=== PATIENT | female | born 1955 | race Caucasian/White ===

== ENCOUNTER 2017-01-19 21:27 | Inpatient (IN) | payer OTHER ==
[~2017-01-19] VITALS: Ht 172.7 cm; Wt 214.2 kg
--- NOTE | ~2017-01-19 | CO ---
ADMIT: 01/19/2017 RM/LOC: 431 [facility] MR#: [id number] [address] [address] MARCELLUS PATE [address] [place] [address] Consultation SEX: F AGE: 61 : 1955 Corrected: 01/22/20172106 aj DATE OF CONSULTATION: 01/22/2017 ATTENDING PHYSICIAN: Isela Sommers CONSULTING PHYSICIAN: Jordan Valenzuela MD ADDENDUM: Marcellus was seen in consultation tonight for hemodialysis catheter insertion. For details of the consult, please see Vidal Hines's full dictated note. I have reviewed that, seen the patient independently, examined her, reviewed her studies and laboratory values. I have discussed in detail with her tunneled hemodialysis catheter insertion. She understands the risks associated with that and does agree to proceed. I am in agreement with Vidal Hines's entire documentation. Jordan Valenzuela MD/ danae JOB #: [id number] CC: Isela Sommers, Attending Physician Chandu Mustafa, Family Physician Corrected: 01/22/20172106 aj
--- NOTE | ~2017-01-19 | WND ---
ADMIT: 01/19/2017 RM/LOC: 431 [facility] MR#: [id number] 2620 [facility] [address] [place] [phone] MARCELLUS PATE [address] [place] [address] Wound Care Clinic SEX: F AGE: 61 : 1955 DATE OF VISIT: 01/24/2017 TIME IN: 0900 hours. TIME OUT: 0930 hours. REASON FOR VISIT: Evaluation and treatment of right flank and hip rash as well as Unna's boot application to left lower extremity. This is request for wound care from Dr. Sommers. HISTORY OF PRESENT ILLNESS: This is a 61-year-old female, who presented to the emergency room at [facility] on 01/19/2017. She had been referred over by SHIV Whipple, from [place] for sepsis, moderately severe, associated with chronic left leg venous stasis ulcer and a new erysipelas of the buttocks and flakes. She had developed fever and chills on January 16 with increasing anorexia but no vomiting or diarrhea. Moderate nausea, no cough, but increasing shortness of breath. She was sent to [facility] for further evaluation and care. Since presenting to [facility], it was noted that her creatinine was rising and she was diagnosed with an acute kidney injury. She actually had a temporary dialysis port placed in her right internal jugular vein yesterday by Dr. Valenzuela. However, at this point in time, she does not need dialysis since her creatinine is lowering. Dr. Tong from Infectious Disease is following her for her erysipelas. She also developed another rash that occurred on her arms and legs and was seen by Dr. 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 Dr. Valenzuela did a biopsy of this rash yesterday also. The patient was seen by [facility] on January 27, at which time, an Unna's wrap was applied to the venous stasis ulcer on her left lower extremity. To her right hip and flank area, bullae were deflated and Xeroform was applied with ABD's or checks for absorption of the fluids. The patient reports she has no current pain. PAST MEDICAL HISTORY: Morbid obesity. Hypertension. History of gastric bypass 10 years ago. Hypothyroidism. Obstructive sleep apnea. Depression. Hyperlipidemia. Cholecystectomy. ALLERGIES: No known medication allergies. CURRENT MEDICATIONS: Per the MAR. Please see the MAR for further details. 1. Lexapro. 2. Synthroid. 3. Lovenox, currently on hold. 4. Cubicin. 5. Zosyn. PRN medications: 1. Colace. 2. Hydrocodone/acetaminophen. ADMIT: 01/19/2017 RM/LOC: 431 [facility] MR#: [id number] [address] [address] MARCELLUS PATE [address] [place] [address] Wound Care Clinic SEX: F AGE: 61 : 1955 3. Maalox. 4. Tylenol. 5. Tylenol suppository. 6. Nitrostat. 7. Normal saline. SOCIAL HISTORY: She is . She resides in [place], [place]. 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 She has a master's degree. Never smoked. She has once a month an alcoholic beverage. FAMILY HISTORY: Significant for lung cancer and heart disease in her father. REVIEW OF SYSTEMS: She is examined in her hospital room where she is awake, alert, and oriented x3. She denies any current fever or chills. No nausea or vomiting. Her appetite is returning, and she is eating breakfast without difficulty. She denies any current shortness of breath. No cough, cold, congestion, or chest pain. She has no abdominal discomfort. She has absolutely no pain in the rashes, either body wide nor the one on her right flank and hip area. She also states that she does have some tenderness to the ulceration on the left posterior calf when it is touched. PHYSICAL EXAMINATION: VITAL SIGNS: Temperature 95.4, pulse 72, respirations 20, blood pressure 100/44, O2 sats on room air is 97%. She has multiple non-blanchable erythematous plaques scattered body wide. They tend to coalesce. There are violaceous macules coalescing into the patches. On her right hip and flank area is fading erythema that has bullae. Some have been previously displayed and one is tense with serous drainage. There is copious amount of serous drainage from this right hip and flank area. To the left lower extremity, foot circumference is 26 cm, ankle is 33 cm, and calf 20 cm, malleolus is 48 cm. Posterior tibialis is 1+. Dorsalis pedis is 1+. On the posterior calf, there is an area that measures 12.5 x 8 cm that has seven scattered ulcerations noted. The largest measures 5.5 x 1.5 with a depth of 0.2 cm. It has a red moist wound base to all the seven ulcerations. A scant amount of serous drainage noted. Firm edema noted on the left lower extremity. Posterior tibialis and dorsalis pedis is 1+. ASSESSMENT: 1. Fading erysipelas on right hip and flank area. 2. Leukocytoclastic vasculitis. 3. Venous stasis ulceration to left posterior calf complicated by venous insufficiency. TREATMENT PLAN: The previous Unna's wrap was removed from the left lower extremity. The leg was washed well with warm soapy water, rinsed, and patted dry. After this, Unna-Flex was applied from toes to popliteal crease, covered with Coban from the toes to popliteal crease. She is to continue with leg elevations and ankle pump exercises. Orders were written to decrease the Unna ADMIT: 01/19/2017 RM/LOC: 431 [facility] MR#: [id number] [address] [place] [phone] MARCELLUS PATE [address] [place] [address] Wound Care Clinic SEX: F AGE: 61 : 1955 boot changes to twice weekly. Requested them on Tuesdays and Fridays. Also, requested a followup appointment on Tuesdays and Fridays in the [facility] as an outpatient after discharge from the hospital. To the right hip and flank area, the dressings had been recently changed. In observing under the dressing noted a tense bullae that was deflated. There was some loose epithelium noted on previously deflated bullae and this was trimmed with sterile scissors. Xeroform was replaced as well as ABD's to absorb the serous drainage. Orders were written and No Sting Barrier spray can be used to periwound area to protect the skin from the serous drainage. This was left in the room for use. Otherwise, we will continue with previously ordered dressing changes as needed for drainage. At this time, she is having no discomfort or any drainage from her vasculitis. So, we will leave these lesions open to air. Thank you for this referral and Wound will follow as an outpatient upon discharge. Dominique Kumar APRN/ danae JOB #: [id number] CC: Isela Sommers, Attending Physician Chandu Mustafa, Family Physician
--- NOTE | 2017-01-20 04:42 | ER ---
ADMIT: 01/19/2017 RM/LOC: 419 [facility] MR#: [id number] 2620 [facility] [address] [place] [phone] TALIB PATEGY [place] [address] [place] [address] Emergency Room Report SEX: F AGE: 61 : 1955 DATE: 01/19/2017 CHIEF COMPLAINT: Sepsis. HISTORY OF PRESENT ILLNESS: The patient is a 61-year-old female, referred by Pavan Cruz for sepsis, moderately severe, associated with chronic left leg venous stasis and new erysipelas of buttocks and flanks. The patient states she developed fevers, chills, on the way home from work, increasing anorexia without vomiting or diarrhea. Moderate nausea. No cough, but increasing shortness of breath. Denies any diarrhea or urinary symptoms, was evaluated at [facility], found to have lactic acidosis 2.3, elevated D-dimer. White count and CRP all consistent with erysipelas, treated with Zosyn and referred for sepsis management and central line placement. The patient arrived feeling much better, no longer tachycardic or febrile. PAST MEDICAL HISTORY: ILLNESSES: Hypertension, hypothyroidism, depression, hyperlipidemia, obstructive sleep apnea, CPAP, morbid obesity. OPERATIONS: Nunu-en-Y at [facility] in the remote past without complications, cholecystectomy, T and A in the remote past. ALLERGIES: NONE. MEDICATIONS: Please see nurse's MAR. SOCIAL HISTORY: . 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 Nonsmoker, nondrinker, no illicit drugs. FAMILY HISTORY: Negative per chart review. REVIEW OF SYSTEMS: A 12-point review of systems negative for all other systems, illnesses, or operations except as outlined above. PHYSICAL EXAMINATION: VITAL SIGNS: Temp 98.3, pulse 96, respirations 24, BP 130/55, SaO2 of 95% on room air. GENERAL: Toxic appearing without jaundice or icterus. HEENT: Normocephalic. No evidence of epistaxis, rhinorrhea, or otorrhea. NECK: Supple without lymphadenopathy or thyromegaly. CHEST: Clear. Breath sounds equal, diminished without rales, rhonchi, or wheeze. HEART: Regular rate and rhythm without murmur, gallop, 2 to 3+ pedal ankle edema, unchanged from baseline according to patient. ABDOMEN: Morbidly obese. Well-healed incisions. No evidence of mass or megaly. BACK: Bilateral flank, buttock erysipelas without weeping lesions, minimally tender to palpation. PERINEUM: No evidence of perirectal, vaginal extension of rash. EXTREMITIES: Venous stasis, dermatitis, and draining wound of left lower leg, chronic. Negative Homans sign. ADMIT: 01/19/2017 RM/LOC: 419 [facility] MR#: [id number] [address] [address] MARCELLUS PATE [address] [place] [address] Emergency Room Report SEX: F AGE: 61 : 1955 MEDICAL DECISION MAKING: The patient was treated prior to arrival with Zosyn, Lovenox 30 mg/kg, concern for PE because of elevated D-dimer; however, in light of sepsis, this is most likely the cause of the elevated D-dimer. Since she does have acute renal failure, likely needs V/Q scan. Since she is hemodynamically stable, that can be done in the morning. WBC 17.2, hemoglobin 10.0, platelet 147, potassium 3.6, creatinine 2.1, INR 1.09. CK 34, MB less than 0.5, troponin less than 0.015. BNP 1654, CRP 27. ABGs on 2 L; pH 7.48, pCO2 of 27.4, PO2 of 97. Left subclavian triple lumen without difficulty. Chest x-ray post procedure shows line in place. No evidence of pneumonia. Mild cardiomegaly without failure. Urine from [place] consistent with UTI, pending here. The patient was covered with vancomycin 25 mg/kg. Discussed case with Dr. Sommers, who agreed and gave orders to nursing staff. Due to the patient's presentation, findings, and intervention, 30 minutes of critical care is warranted. PROCEDURE: Left central line triple-lumen aseptic technique without difficulty. Patient tolerated procedure well. DIAGNOSES: 1. Morbid obesity. 2. Moderate sepsis syndrome. 3. Acute renal failure. 4. Erysipelas of buttocks and flanks associated with chronic venous stasis disease, left lower leg. 5. Hypertension. 6. Hyperlipidemia. RECOMMENDATION: Admit inpatient PCU for Dr. Sommers. ADMISSION/DISCHARGE CONDITION: Stable. Patient is a full code. Chaz Tamez MD/ manfredl JOB #: [id number] CC: Isela Sommers MD, Attending Physician Chandu Mustafa MD, Family Physician MD Isela Duke MD Roger D Wells, PA-C
--- NOTE | 2017-01-23 10:32 | CO ---
ADMIT: 01/19/2017 RM/LOC: 431 [facility] MR#: [id number] 2620 [facility] [address] [place] [phone] PATEMARCELLUS [address] [place] [address] Consultation SEX: F AGE: 61 : 1955 DATE OF CONSULTATION: 01/20/2017 ATTENDING PHYSICIAN: Isela Sommers CONSULTING PHYSICIAN: Rebecca Monson MD REASON FOR CONSULTATION: Acute kidney injury. HISTORY OF PRESENT ILLNESS: The patient is a pleasant 61-year-old female, who is transferred here from [facility]. She presented there with a chief complaint of fevers, chills, and rigors. She has a history of chronic lower extremity edema along with left foot ulcer for which she was being followed up by Dr. Maier previously. She began to have her rash on her buttocks and sought evaluation in the ER at [facility]. She was found to be in renal failure with a creatinine of 2.1 along with an elevated D-dimer and lactic acidosis. She was tachycardic and because of the concern for sepsis, she was transferred here for further management. In speaking with the patient, she has been taking about five tablets of Aleve on a daily basis. She also has been on renin-angiotensin blockade for her hypertension. She denies any urinary complaints. Breathing is fair. She has obstructive sleep apnea for which she is on CPAP. Appetite has been fair. Denies any cardiac, respiratory, or abdominal complaints. REVIEW OF SYSTEMS: A complete review of system is negative in detail except as mentioned in history of present illness above. PAST MEDICAL HISTORY: 1. Hypertension. 2. Morbid obesity. 3. Bypass surgery Nunu-en-Y several years ago. 4. Hypothyroidism. 5. Obstructive sleep apnea, on CPAP. 6. Depression. 7. Hyperlipidemia. ALLERGIES: NO KNOWN DRUG ALLERGIES. MEDICATIONS: Reviewed in the chart. SOCIAL HISTORY: She is . 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 Lifelong nonsmoker. No alcohol or recreational drug use. She has one daughter and two grand kids. FAMILY HISTORY: No family history of chronic kidney disease or renal replacement therapy. PHYSICAL EXAMINATION: VITAL SIGNS: Temperature 95.3 Fahrenheit, pulse 88, blood pressure 112/60, saturating 97% on room air. ADMIT: 01/19/2017 RM/LOC: 431 [facility] MR#: [id number] 2620 [facility] [address] [place] [phone] MARCELLUS PATE [address] [place] [address] Consultation SEX: F AGE: 61 : 1955 GENERAL: She is comfortable in her recliner. HEENT: Head is nontraumatic and normocephalic. Pale conjunctivae. Dry mucosa. NECK: Supple without any JVD. CHEST: Clear to auscultation. CVS: Regular rhythm. S1 and S2. No rubs, murmurs, or gallops. ABDOMEN: Soft, obese. EXTREMITIES: 1+ bilateral lower extremity edema. NEUROLOGIC: Alert, awake, and oriented x3. She is able to move her extremities. LABORATORY DATA: Reviewed. BMP with sodium 138; potassium 3.6; CO2 of 23; creatinine 2.3, up from 2.1 yesterday; calcium 7.6. Hemoglobin 9.4. Urinalysis with 1+ protein, 2+ blood, and trace leukocyte esterase. She did have squamous epithelial cells in her urine. ASSESSMENT AND PLAN: Acute kidney injury-her baseline serum creatinine was 1.2 last summer. Her acute kidney injury is likely secondary to acute tubular necrosis, septic/nephrotoxic. I will stop her NSAIDs, renin-angiotensin blockade as well as antihypertensive. I agree with IV fluid resuscitation. We will need to be careful with the antibiotic dosing especially if her creatinine continues to rise. Her antibiotics vancomycin and Zosyn are being dosed by Pharmacy. I will monitor her kidney function and electrolytes from here on. Thank you for this consultation. Please do not hesitate to contact with any questions. Rebecca Monson MD/ danae JOB #: [id number] CC: Isela Sommers, Attending Physician Chandu Mustafa, Family Physician
--- NOTE | 2017-01-27 07:23 | OR ---
ADMIT: 01/19/2017 RM/LOC: 431 [facility] MR#: [id number] [address] [place] [phone] PATE, MARCELLUS L [address] [place] [address] Operative/Delivery Room Report SEX: F AGE: 61 : 1955 SURGERY DATE: 01/23/2017 SURGEON: Jordan Valenzuela MD PREOPERATIVE DIAGNOSES: 1. Acute renal failure. 2. Rash of the right lower extremity. POSTOPERATIVE DIAGNOSES: 1. Acute renal failure. 2. Rash of the right lower extremity. PROCEDURES: 1. 4 mm punch biopsy of the right lower extremity x2. 2. Right internal jugular vein tunneled hemodialysis catheter insertion under ultrasound and fluoroscopic guidance. ANESTHESIA: General. ESTIMATED BLOOD LOSS: 10 mL. DESCRIPTION OF PROCEDURE: The patient was taken to the operating room and placed supine on the operating room table. General anesthesia was established. The right lower extremity and the rash area was prepped and draped in the standard surgical fashion. Local anesthetic was used to anesthetize the skin at the area of rash. Two separate 4 mm punch biopsies were taken for sampling of this area. A dressing was placed. Next, the right neck and chest were prepped and draped in the standard surgical fashion. Local anesthetic was used to anesthetize the skin and subcutaneous tissue of the area. The right internal jugular vein was identified with ultrasound, cannulated under ultrasound guidance with a large gauge needle. A guidewire ADMIT: 01/19/2017 RM/LOC: 431 [facility] MR#: [id number] [address] [place] [phone] PATE, MARCELLUS L [address] [place] [address] Operative/Delivery Room Report SEX: F AGE: 61 : 1955 was advanced under fluoroscopic visualization of the right atrium. The dual lumen catheter was tunneled from a separate stab incision in the subcutaneous space inferior to the right clavicle to the needle insertion site with its subcutaneous cuff in appropriate position. The sequential dilators and final sheath were advanced under fluoroscopic visualization over the guidewire. The dilator and sheath were withdrawn. The catheter was deployed via the sheath and the sheath was removed. The catheter was in good position with the tip at the right atrium and no kink. The ports were both accessed and aspirated easily and flushed with heparinized saline. The catheter was secured to the skin with 3-0 nylon suture. Dressings were placed. Sponge, needle, and instrument counts were correct at the end of the case. The patient tolerated the procedure well and transferred to the recovery area in stable condition. Jordan Valenzuela MD/ danae JOB #: [id number] CC: Isela Sommers, Attending Physician Chandu Mustafa, Family Physician
--- NOTE | 2017-01-27 07:23 | CO ---
ADMIT: 01/19/2017 RM/LOC: 431 [facility] MR#: [id number] 2620 [facility] [address] [place] [phone] MARCELLUS PATE [address] [place] [address] Consultation SEX: F AGE: 61 : 1955 Corrected: 01/22/2017 2110 ajf DATE OF CONSULTATION: 01/22/2017 ATTENDING PHYSICIAN: Isela Sommers CONSULTING PHYSICIAN: Jordan Valenzuela MD REASON FOR CONSULTATION: Placement of temporary dialysis catheter. HISTORY OF PRESENT ILLNESS: Marcellus is a very pleasant, 61-year-old female, who reports a 5-day history of chills, fevers, and rash. She just has not been feeling well and thought it was flu like symptoms initially, but then she started to develop a rash that started on her left hip and has now spread to her back, buttocks bilaterally and the posterior and anterior aspects of her lower extremities. Because of her symptoms, she was seen in our emergency room and was noted to have an elevated creatinine, white count, and lactic acid, so the patient was admitted to the hospital. Since admission, Nephrology has been consulted. Her creatinine continued to rise and in fact it is 5.1 today and so we were consulted for placement of temporary hemodialysis catheter. She denies any pain. She is currently on IV antibiotics. PAST MEDICAL HISTORY: Significant for morbid obesity, hypertension, hypothyroidism, obstructive sleep apnea, depression, and hyperlipidemia. PAST SURGICAL HISTORY: 1. Nunu-en-Y gastric bypass. 2. Cholecystectomy. ALLERGIES: NO KNOWN DRUG ALLERGIES. MEDICATIONS: Well documented in chart. FAMILY HISTORY: Noncontributory. SOCIAL HISTORY: The patient denies any tobacco, alcohol, or illicit drug use. REVIEW OF SYSTEMS: CONSTITUTIONAL: The patient denies current fever, chills, or night sweats. The rest of a comprehensive 10-point review of systems was performed and all other systems are negative. PHYSICAL EXAMINATION: GENERAL: The patient is in no acute distress. She is alert and oriented. HEENT: Head is normocephalic and atraumatic. EOMS are intact. Conjunctivae free of icterus, erythema, or pallor. Pinnae free of deformities. Nose, midline. No tracheal deviation. NECK: Supple. SKIN: Negative for jaundice, clubbing, edema, pallor, or cyanosis. Non blanching erythematous rash noted on the anterior and posterior aspect of her ADMIT: 01/19/2017 RM/LOC: 431 [facility] MR#: [id number] [address] [address] MARCELLUS PATE [address] [place] [address] Consultation SEX: F AGE: 61 : 1955 lower extremities, back and buttocks. LUNGS: Normal respiratory effort. HEART: Pulses intact. Regular rate and rhythm. ABDOMEN: Morbid obesity noted. Soft. NEURO: Grossly intact. LABORATORY DATA: Creatinine 5.1. ASSESSMENT: 1. Acute kidney injury. 2. 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 PLAN: Plan is to go ahead and proceed with placement of hemodialysis catheter in the OR tomorrow. This will be performed by Dr. Valenzuela. During my assessment, Dr. Kramer was present and she was hoping to get a punch biopsy performed and so we will plan to do this while the patient was sedated in the OR. I discussed the risks, alternatives, benefits, and complications of punch biopsy and hemodialysis catheter placement with the patient to which she is in agreement of this plan, had all her questions answered and would like to proceed. Today I will give her clears, but she needs to be n.p.o. at midnight, and we will see her tomorrow in the OR. Thanks for the consultation. SHIV Flor / Jordan Valenzuela MD / danae JOB #: [id number] CC: Isela Sommers, Attending Physician Chandu Mustafa, Family Physician Corrected: 01/22/20172109 ya
[2017-01-28] MEDS ORDERED: LEXAPRO DPS20 MG PO (13:55)
[2017-01-28] MEDS ORDERED: SYNTHROID DPS0.15 MG PO (13:56)
[2017-01-28] MEDS ORDERED: COLACE-DPS100 MG PO (13:57)
[2017-01-28] MEDS ORDERED: NORMAL SALINE FL5 ML IV (13:57)
[2017-01-28] MEDS ORDERED: CUBICIN500 MG IV (13:57)
[2017-01-28] MEDS ORDERED: TYLENOL DPS325 MG PO (13:58)
--- NOTE | 2017-01-29 11:11 | CO ---
ADMIT: 01/19/2017 RM/LOC: [facility] MR#: [id number] [address] [facility] [address] [place] [phone] MARCELLUS GOMEZ [address] [place] [address] Consultation SEX: F AGE: 61 : 1955 DATE OF CONSULTATION: 01/21/2017 ATTENDING PHYSICIAN: Isela Sommers CONSULTING PHYSICIAN: Stephanie Tong MD REASON FOR CONSULT: Erysipelas. Thank you, Dr. Sommers, for the consult and involving me in this patient's care. HISTORY OF PRESENT ILLNESS: Ms. Gomez is a 61-year-old morbidly obese woman who presented to [facility] [place] with complaint of fever, chills, and rigors which started around 5 days back. She noticed increased redness and pain on her right side of the back which later spread to bilateral buttocks, back, and also posterior thigh. In the ER, she was noted to have elevated creatinine of 2.18, WBC count of 14.3, and elevated lactic acid, hence was transferred to [facility] [place] further management. Here she was started on vancomycin and Zosyn and creatinine today is 3.8. The patient also reported taking Aleve on a daily basis. She has history of obstructive sleep apnea and uses CPAP, but since last few days she has noted increased wheezing and shortness of breath even at rest. PAST MEDICAL HISTORY: Morbid obesity, hypertension, history of gastric bypass 10 years ago, hypothyroidism, obstructive sleep apnea, depression, hyperlipidemia, and history of cholecystectomy. ALLERGIES: NO KNOWN DRUG ALLERGIES. CURRENT MEDICATIONS: Include: 1. Lexapro. 2. Synthroid. 3. Lovenox. 4. Vancomycin 2 g once daily. 5. Zosyn 3.375 g every 8 hours. SOCIAL HISTORY: She lives alone at home. Denies any smoking, alcohol, or recreational drug use. FAMILY HISTORY: Significant for lung cancer in her father. REVIEW OF SYSTEMS: A 10-point review of systems negative except as mentioned in HPI. PHYSICAL EXAMINATION: VITAL SIGNS: Current temperature 96.8, T-max 100, heart rate 73, respirations 24, blood pressure 112/54, 94% on room air. GENERAL: No acute distress. HEENT: Head, normocephalic and atraumatic. Extraocular movements intact. LYMPH: No palpable anterior/posterior cervical or supraclavicular ADMIT: 01/19/2017 RM/LOC: [facility] MR#: [id number] [address] [facility] [address] [place] [id number] MARCELLUS GOMEZ [address] [place] [address] Consultation SEX: F AGE: 61 : 1955 lymphadenopathy. CHEST: Decreased breath sounds bilaterally. No wheezes, rales, or rhonchi. CARDIOVASCULAR: S1, S2 heard. Regular rate and rhythm. Tachycardia. ABDOMEN: Soft, obese, and nontender. SKIN: There is diffuse, demarcated erythema on her bilateral flank and buttocks. Increased warmth and tenderness to palpation. MUSCULOSKELETAL: 4+ edema bilateral lower extremities. On the left lower extremity, there is a chronic ulcer on the calf, currently in Unna boot. PSYCH: Normal affect. Memory intact. DATA REVIEW: CBC today is 22.1 hemoglobin 9.4, and platelets 171. Blood cultures and urine cultures are no growth to date. ASSESSMENT AND PLAN: 1. Erysipelas on the back and buttocks. There are also many blisters and questionable purulent fluid. At this time, I will stop the vancomycin given her worsening acute kidney injury and change to daptomycin IV 6 mg/kg once daily. Continue Zosyn for now and I will narrow antibiotics over the course. 2. Acute kidney injury. 3. Morbid obesity. 4. Obstructive sleep apnea. 5. Left leg chronic ulcer. Wound Care on board. 6. Anemia. 7. Depression. Thank you for the consult and I will continue to follow the patient. Stephanie Tong MD/ danae JOB #: [id number] CC: Isela Sommers, Attending Physician Chandu Mustafa, Family Physician
--- NOTE | 2017-02-21 15:29 | CO ---
ADMIT: 01/19/2017 RM/LOC: 431 [facility] MR#: [id number] [address] [facility] [address] [place] [phone] [address] [place] [address] Consultation SEX: F AGE: 61 : 1955 DATE OF CONSULTATION: 01/22/2017 ATTENDING PHYSICIAN: Isela Sommers CONSULTING PHYSICIAN: Neha Kramer MD REASON FOR CONSULTATION: Rash. HISTORY OF PRESENT ILLNESS: Ms. Gomez is a pleasant 61-year-old white female who was admitted with presumed erysipelas. She reported having fever and chills last Friday when she was coming home from work. A rash was noted on her back. When she was evaluated at hospital, this was assumed to be erysipelas. The patient and Dr. Tong stated the eruption on the back has improved since antibiotics have been started. This morning, the patient notes the rash on her legs, it was asymptomatic other than may be a little bit of burning associated with it. The patient never had a rash like this before. Upon further questioning, the patient does state, she has had a lot of joint pain over the last couple weeks, has been taking a lot more Aleve than usual. PRESENT MEDICATIONS: Include: 1. Lexapro. 2. Synthroid. 3. Zosyn. 4. Daptomycin. ALLERGIES: NO KNOWN DRUG ALLERGIES. SOCIAL HISTORY: She lives alone. She denies any tobacco or alcohol abuse. She does work in [employer]. FAMILY HISTORY: Significant for lung cancer in her father. REVIEW OF SYSTEMS: GENERAL: Marcellus states she has been feeling well until couple of weeks ago. At this time, she just "did not feel right." CUTANEOUS: Per HPI. MUSCULOSKELETAL: As per the HPI, the patient states she had a lot of joint pain over the last couple of weeks, has been taking a lot more Aleve than usual. : The patient denies noting any blood in her urine. GI: No abdominal pain or blood in her stools. PHYSICAL EXAMINATION: GENERAL: Ms. Gomez is a pleasant white female who is obese. VITAL SIGNS: She is afebrile today. CUTANEOUS: She has 2 different eruptions on the back. She has some kind of erythema, some areas of kind of dusky hue associated with them. It is more indurated. There is a marker outlining where this was previously noted and does seem to be receding. On the anterior and posterior thighs, there is a nonblanchable, erythematous, violaceous, macules coalescing the patches. There ADMIT: 01/19/2017 RM/LOC: 431 [facility] MR#: [id number] [address] [phone] TALIB GOMEZ[address] [facility] [place] [address] Consultation SEX: F AGE: 61 : 1955 is no induration associated with these areas. No eruptions noted in the inguinal regions as far as I can tell with the exam. The patient is obese and was difficult to examine her inguinal region. LABORATORY DATA: White blood cell count 22, creatinine is 5.1 today. UA noted on 01/19/2017 had 2+ blood. ASSESSMENT: I think the patient most likely has 2 eruptions 1. Erysipelas which seems to be improving on present antibiotics. 2. 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 Leukocytoclastic vasculitis can also affect the kidneys. This may be a factor in her acute renal failure. PLAN: When I was examining and speaking with the patient, Dr. Valenzuela's physician virtual customer assistant was in the room. They are apparently taking the patient to the OR for dialysis catheter later today or early tomorrow and he was going to talk with Dr. Valenzuela about taking a biopsy of her skin at that time. If Dr. Valenzuela is unable to do this, I will return later on today to obtain a biopsy. I will be out of town for the rest of the week, so I am going to talk to Dr. Tong about following up on the pathology results. If you have any other questions, please do not hesitate to call. Neha Kramer MD/ danae JOB #: [id number] CC: Isela Sommers, Attending Physician Chandu Mustafa, Family Physician
--- NOTE | 2017-02-26 08:00 | DS ---
ADMIT: 01/19/2017 RM/LOC: 431 [facility] MR#: [id number] [address] [id number] TALIB PATE[address] [place] [address] [place] [address] General Discharge Summary SEX: F AGE: 61 : 1955 ADMISSION DATE: 01/19/2017 DISCHARGE DATE: 01/27/2017 FINAL DIAGNOSES: 1. Erysipelas. 2. Sepsis secondary to skin infection. 3. Acute kidney failure. 4. Morbid obesity. 5. Chronic lower extremity venous stasis edema. 6. Chronic hypertension. 7. Chronic hyperlipidemia. 8. Chronic depression. 9. Obstructive sleep apnea. 10.Volume overload secondary to acute kidney insufficiency. HOSPITAL COURSE: This is a 61-year-old lady who was initially seen in [facility] and transferred to [facility] [place]. She was evaluated in our emergency room and diagnosis of erysipelas sepsis was made. She had a central line placed in the emergency room and was given vancomycin and Zosyn and admitted under sepsis protocol. She was started on Lovenox for VTE prophylaxis. She is morbidly obese. Her D-dimer was elevated, but because of her kidney failure, we could not do CT angiogram. The patient was not in any respiratory distress. She was maintained on IV fluids, IV antibiotics. I consulted Nephrology. They assisted with management of IV fluid. They stopped her Norvasc and made changes in fluid rate. Physical Therapy and Wound Care also saw the patient. She has blisters on her right flank and was already wearing an Unna boot on the left lower extremity because of lower leg venous ulcers. On the 2nd hospital day, we consulted Infectious Disease. Dr. Tong stopped the vancomycin and started daptomycin and ordered cultures of some of the blistered areas. Interventional Radiology was consulted to place a temporary dialysis catheter. We also consulted Dermatology because of her rash. 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 On 01/23, she had right internal jugular tunneled dialysis catheter placed. Dr. Tong with Infectious Disease continued to manage antibiotic dosing and treatment as well as ordered new laboratory including hepatitis panel and ANCA as well as comanagement with Nephrology. Hepatitis panel was negative. Wound Care continued to follow. On 01/27, the dialysis catheter was removed. There were no complications with that. Her central line was removed. Dr. Tong made plans to continue the daptomycin IV as an outpatient through 02/02/2017, and then follow up with Dr. Tong in the office in one week. On dismissal, she will continue to wear her Unna boot and will follow with the ADMIT: 01/19/2017 RM/LOC: 431 [facility] MR#: [id number] [address] [place] [phone] MARCELLUS [address] [place] [address] General Discharge Summary SEX: F AGE: 61 : 1955 W[facility] in [place]. She will have her IV antibiotic therapy in [place] as well. I do note that patient refused home health care and said she would go to [facility] or [facility] for dressing changes. Medications on discharge were: 1. Lexapro 20 mg daily. 2. Synthroid 0.5 mg daily. 3. Colace 100 mg twice a day p.r.n. 4. Tylenol 650 mg every 4 hours p.r.n. She was expressly told not to take any nonsteroidal anti-inflammatory medicines. She will follow with Wound Care as an outpatient, continue her IV daptomycin as an outpatient, and follow up in Dr. Mustafa's office in one week at [facility] and also see Dr. Tong in about a week. No vaccines were given during this hospital stay. Isela Sommers MD/ danae JOB #: [id number] CC: Isela Sommers MD, Attending Physician Chandu Mustafa MD, Family Physician
== END 2017-01-27 17:00 | disposition home health service (06) | DRG 871 ==
LOC: ER 21:27 → 4PCU 22:30
PROVIDERS: ADMIT Family Medicine
PROC: 02HV33Z Insertion of Infusion Device into Superior Vena Cava, Percutaneous Approach (ICD-10-PCS; 2017-01-20)
PROC: 0HBKXZX Excision of Right Lower Leg Skin, External Approach, Diagnostic (ICD-10-PCS; principal; 2017-01-23)
PROC: 0JH63XZ Insertion of Tunneled Vascular Access Device into Chest Subcutaneous Tissue and Fascia, Percutaneous Approach (ICD-10-PCS; principal; 2017-01-23)
PROC: 02H633Z Insertion of Infusion Device into Right Atrium, Percutaneous Approach (ICD-10-PCS; principal; 2017-01-23)
PROC: B543ZZA Ultrasonography of Right Jugular Veins, Guidance (ICD-10-PCS; principal; 2017-01-23)
PROC: B518ZZA Fluoroscopy of Superior Vena Cava, Guidance (ICD-10-PCS; principal; 2017-01-23)
PROC: 02PY33Z Removal of Infusion Device from Great Vessel, Percutaneous Approach (ICD-10-PCS; 2017-01-27)
PROC: 0JPT0XZ Removal of Tunneled Vascular Access Device from Trunk Subcutaneous Tissue and Fascia, Open Approach (ICD-10-PCS; 2017-01-27)
DX: A41.9 Sepsis, unspecified organism (principal); N17.0 Acute kidney failure with tubular necrosis; L97.229 Non-pressure chronic ulcer of left calf with unspecified severity; Z68.45 Body mass index [BMI] 70 or greater, adult; A46 Erysipelas; L95.8 Other vasculitis limited to the skin; E66.01 Morbid (severe) obesity due to excess calories; R65.20 Severe sepsis without septic shock; I10 Essential (primary) hypertension; E03.9 Hypothyroidism, unspecified; D64.9 Anemia, unspecified; I87.2 Venous insufficiency (chronic) (peripheral); F32.9 Major depressive disorder, single episode, unspecified; E78.5 Hyperlipidemia, unspecified; G47.33 Obstructive sleep apnea (adult) (pediatric); Z98.84 Bariatric surgery status